=== PATIENT | female | born 1995 | race Two or more races ===

== ENCOUNTER 2017-11-06 09:30 | Emergency (ER) | payer OTHER ==
[2017-11-06 11:24] VITALS: BP 114/88
== END 2017-11-06 11:24 | disposition home or self-care (01) ==
LOC: ED 09:30
DX: S90.122A Contusion of left lesser toe(s) without damage to nail, initial encounter (principal); W20.8XXA Other cause of strike by thrown, projected or falling object, initial encounter; Y93.89 Activity, other specified; Y99.8 Other external cause status; Y92.89 Other specified places as the place of occurrence of the external cause
CPT/HCPCS: Q0092

== ENCOUNTER 2018-08-10 17:29 | Emergency (ER) | payer OTHER ==
[~2018-08-10] VITALS: Ht 157.5 cm; Wt 73.5 kg
[2018-08-10 17:40] VITALS: BP 132/63; Ht 157.5 cm; Wt 73.5 kg
== END 2018-08-10 18:35 | disposition home or self-care (01) ==
LOC: ED 17:29
DX: M79.1 Myalgia (principal); M54.5 Low back pain; R03.0 Elevated blood-pressure reading, without diagnosis of hypertension; M79.602 Pain in left arm; W01.0XXA Fall on same level from slipping, tripping and stumbling without subsequent striking against object, initial encounter; Y93.89 Activity, other specified; Y92.89 Other specified places as the place of occurrence of the external cause; Y99.8 Other external cause status